=== PATIENT | female | born 1995 | race Hispanic/Latino ===

== ENCOUNTER 2023-11-29 08:51 | Emergency (ER) | payer OTHER ==
[~2023-11-29] VITALS: Ht 149.9 cm; Wt 61.7 kg
[~2023-11-29 08:51] MED LIST: CEPH500B PO
[2023-11-29] MEDS ORDERED: KETO10TA2 PO (11:08)
[2023-11-29 11:15] VITALS: BP 123/65; PULSE 72; RESP 18; O2SAT 98
== END 2023-11-29 11:20 | disposition home or self-care (01) ==
LOC: EDH 08:51
DX: M76.61 Achilles tendinitis, right leg (principal)
CPT/HCPCS: 73610